=== PATIENT | female | born 1970 | race Caucasian/White ===

== ENCOUNTER 2018-04-08 05:28 | Day surgery (SDC) | payer BC, SELFPAY ==
--- NOTE | 2018-03-16 12:45 | EKG12_ITS ---
Test Reason : PRE OP Blood Pressure : / mmHG Vent. Rate : 077 BPM Atrial Rate : 077 BPM P-R Int : 146 ms QRS Dur : 072 ms QT Int : 356 ms P-R-T Axes : 064 021 051 degrees QTc Int : 402 ms Normal sinus rhythm Normal ECG Confirmed by PUNEET MATTA, HERMANN ([id number]), avid editor JAZMIN ESTEVES ([id number]) on 03/18/2018 12:56:44 PM Referred By: Aditi Ocampo Confirmed By:HERMANN TEIXEIRA MD
[2018-03-16 13:22] LABS: Hematocrit 41.8 % (37-47); Hemoglobin 13.4 g/dl (12.0-15.0); Mean Corp Hgb Conc 32.1 g/gl (32-36); Mean Corpuscular Hgb 28.8 pg (27.0-32.0); Mean Corpuscular Volume 89.9 fL (81-99); Mean Platelet Vol. 9.8 fl (6.2-12.0); Platelet Count 385 K/mm3 (150-450); RBC Distribution Width CV 12.9 % (11.6-14.6); RBC Distribution Width SD 42.2 fl (35.1-43.9); Red Blood Count 4.65 M/mm3 (4.2-5.4); Scan Indicated on CBC? Y/N NO; White Blood Count 6.3 K/mm3 (4.4-11.0)
[2018-03-16 13:28] LABS: International Normalized Ratio 0.9; Prothrombin Time (Protime)PT. 12.1 SECONDS (11.7-14.9)
[2018-03-16 13:29] LABS: Partial Thromboplast Time 25.6 Seconds (24.1-36.2)
[2018-03-16 13:49] LABS: AST(SGOT) 20 U/L (15-37); Alanine Aminotransfer ALT/SGPT 31 U/L (13-56); Albumin, Serum 3.2 g/dL (3.2-5.0); Alkaline Phosphatase 46 U/L (45-117); Globulin 4.2 g/dL (2.2-4.2); Protein, Total 7.4 g/dL (6.4-8.2)
--- NOTE | 2018-04-08 | HYST_PTH ---
PATIENT: EMERALD BLACKWELL LOC: [facility] [place] U[place][id number] AGE/SX: 48/F ROOM: RE04/08/[address]: Dr. Aditi Ocampo MD : [id number] BED: DIS: 04/09/2018 SPEC #: [id number] RECD: 04/08/18 11:04 STATUS: CYNTHIA LEEANNE #: [id number] MICHELLE: 04/08/18 00:[address]: Aditi Ocampo DEPT: SURGICAL PATHOLOGY RECD BY: Jax Al ENTERED: 04/09/18 08:51 SP TYPE: HYSTERECT OTHR DR: Dr. Melani Ennis MD Tissues: Uterus, NOS Procedures: Surgery Specimen Level V HEADER OPERATION: Total vaginal hysterectomy, bilateral salpingectomy PRE-OP DIAGNOSIS: Abnormal uterine bleeding TISSUE SUBMITTED: Uterus, cervix, bilateral fallopian tubes MICROSCOPIC DIAGNOSIS Uterus, cervix and bilateral fallopian tubes: Cervix ? chronic cystic cervicitis. Endometrium ? consistent with exogenous hormone effects. Myometrium ? leiomyomas (largest measuring 5 cm in diameter). One fallopian tube (block 9) - no pathologic diagnosis. Second fallopian tube (block 10) ? mucosal and subserosal surface changes consistent with exogenous hormone effects. SJ:adela 04/09/18 MICROSCOPIC DESCRIPTION Slides are reviewed. GROSS DESCRIPTION Received in fixative is one container labeled with the patient's name and designated uterus, cervix, bilateral fallopian tubes. The specimen consists of a hysterectomy specimen consisting of uterus with cervix and detached bilateral fallopian tubes. The uterus with cervix weighs 279 gm and measures 11 x 9 x 7 cm. The serosal surface is ji, glistening. The ectocervical mucosa is congested and eroded. The external os is oval in contour. The endocervical canal measures 4 cm in length and the endocervical mucosa is unremarkable. The endometrial cavity is compressed on one side and measures 5 cm in length and 4 cm in width. The endometrium is ji, glistening and measures up to 0.1 cm in thickness. Sections of myometrial wall reveal multiple masses. The largest mass is intramural to submucosal in location in the posterior uterine wall and measures 5 cm in diameter. Sections of these masses reveal ji whorled cut surfaces without areas of hemorrhage, necrosis or cystic degeneration. The uninvolved uterine wall measures 3 cm in thickness. The fallopian tubes are not identified as right or left. Fimbrial ends are noted on both fallopian tubes. One fallopian tube measures 3.5 cm in length and 0.5 cm in diameter. The second fallopian tube measures 2.5 cm in length and 0.6 cm in diameter. Leaf Sorter sections are submitted in ten cassettes as follows: 1 - anterior cervix, 2 - posterior cervix, 3 & 4 - anterior uterine wall, 5 & 6 - posterior uterine wall (6 also contains section of largest nodular mass), 7 ? small nodular masses, 8 ? largest nodular mass, 9 & 10 ? each containing one fallopian tube. / SJ:adela 04/08/18 TC:1 CPT: 76821
--- NOTE | 2018-04-08 05:28 | DT_ITS ---
This patient was seen during an EMR downtime April 05, 2018 - April 12, 2018. This patient may have a combination of paper and electronic documentation or all paper documentation. All documentation is viewable within the e-chart portion of [employer] for each patient visit.
[2018-04-12 11:37] LABS: Hemoglobin 10.7 g/dl (12.0-15.0); Red Blood Count 3.71 M/mm3 (4.2-5.4); White Blood Count 12.7 K/mm3 (4.4-11.0)
[2018-04-12 11:38] LABS: Hematocrit 32.9 % (37-47); Mean Corp Hgb Conc 32.5 g/gl (32-36); Mean Corpuscular Hgb 28.8 pg (27.0-32.0); Mean Corpuscular Volume 88.7 fL (81-99); Mean Platelet Vol. 9.9 fl (6.2-12.0); Platelet Count 339 K/mm3 (150-450); RBC Distribution Width CV 13.2 % (11.6-14.6); RBC Distribution Width SD 42.8 fl (35.1-43.9); Scan Indicated on CBC? Y/N NO
[2018-04-13 04:00] LABS: Hematocrit 36.2 % (37-47); Hemoglobin 11.9 g/dl (12.0-15.0); Mean Corp Hgb Conc 32.9 g/gl (32-36); Mean Corpuscular Hgb 29.1 pg (27.0-32.0); Mean Corpuscular Volume 88.5 fL (81-99); Mean Platelet Vol. 9.6 fl (6.2-12.0); Platelet Count 334 K/mm3 (150-450); RBC Distribution Width CV 13.2 % (11.6-14.6); RBC Distribution Width SD 42.5 fl (35.1-43.9); Red Blood Count 4.09 M/mm3 (4.2-5.4); Scan Indicated on CBC? Y/N NO; White Blood Count 12.4 K/mm3 (4.4-11.0)
[2018-04-13 10:51] LABS: Internal QC Validated? YES +Cl - CLEAR BKGD; Pregnancy, Urine Negative Negative
== END 2018-04-09 08:57 | disposition home or self-care (01) ==
LOC: SDC 05:28 → AC 05:30 → MS3 04-09 08:31
PROVIDERS: Family Provider Internal Medicine; PCP Internal Medicine; Visit Provider Obstetrics & Gynecology
PROC: 0UT9FZZ Resection of Uterus, Via Natural or Artificial Opening With Percutaneous Endoscopic Assistance (ICD-10-PCS; CPT 52000; principal; 2018-04-08 07:05)
DX: N72 Inflammatory disease of cervix uteri (principal); D26.1 Other benign neoplasm of corpus uteri; N93.9 Abnormal uterine and vaginal bleeding, unspecified; D25.1 Intramural leiomyoma of uterus; E06.9 Thyroiditis, unspecified; D64.9 Anemia, unspecified; G43.909 Migraine, unspecified, not intractable, without status migrainosus
CPT/HCPCS: 00910; 52000; 58291; 36415; 80076; 81025; 84443; 85027; 85610; 85730; 86850; 86900; 88307; 93005; J7120; J2405

== ENCOUNTER → 2019-02-01 12:43 | Outpatient (CLI) | payer OTHER, SELFPAY ==
--- NOTE | 2019-02-01 12:49 | BI_ITS ---
MAMMOGRAPHY - BILATERAL SCREENING REASON FOR EXAM: Female, 49 years old. Routine annual screening examination. PERTINENT HISTORY: Father with breast cancer. Sister with breast cancer. TECHNIQUE: Digital bilateral breast paula (3D mammographic acquisition) in the CC and MLO projections. 2-D mediolateral oblique (MLO) and craniocaudad (CC) views of both breasts were obtained. CAD: Full Field Digital Mammography with Computer Added Detection was performed. COMPARISON: Comparison is made with prior examination dated July 21, 2009. FINDINGS: Breast Composition: There are scattered areas of fibroglandular density. There are no dominant masses or suspicious calcifications. Stable asymmetric breast tissue with more breast tissue is seen in the upper outer quadrant of the left breast as compared to the right side. No other significant abnormalities are identified. There has been no significant change since the prior study. BI/SCREENING MAMM (CAD), BILAT IMPRESSION: Stable bilateral screening mammogram. Yearly follow-up mammogram recommended. (A) ASSESSMENT CATEGORY: BIRADS Category 2: Benign. A letter regarding these results will be sent to the patient by the facility within 30 days. Approximately 10% of breast cancers are not detected by mammography. A normal mammogram should not delay biopsy of a clinically suspicious abnormality. [id number] Electronically Signed: Chuck Bergman, at 14:35 EDT , Service support ,
--- NOTE | 2019-02-01 13:39 | CT_ITS ---
STUDY: CT CHEST WITHOUT CONTRAST REASON FOR EXAM: Female, 49 years old. Calcium scoring examination. RADIATION DOSAGE (If Supplied By Facility): CTDIvol = ( 12.19 ) mGy, DLP = ( 195.04 ) mGycm TECHNIQUE: Transaxial imaging was performed without the administration of intravenous contrast material. Individualized dose optimization techniques were used for this CT. COMPARISON: None. FINDINGS: Small bilateral axillary lymph nodes. The largest lymph node in the left axillary region measures 1.5 cm. The lungs are normal. There is no demonstrated pleural abnormality. Normal heart and pericardium. There are multiple small lymph nodes within the mediastinum, which are normal in size and morphology most compatible with reactive lymph hyperplasia. Normal hilar regions. Normal unenhanced pulmonary arteries. Normal aorta arch and descending thoracic aorta. There are degenerative changes of the thoracic spine. There is no demonstrated abnormality of the visualized upper abdomen. CT/Limited Chest CT w/CCTA IMPRESSION: Normal unenhanced CT Chest examination. Electronically Signed: Chuck Bergman, at 11:09 EDT , Service support ,
[2019-02-01 13:42] VITALS: BP 104/59; PULSE 62; RESP 16; O2SAT 99; BMI 32.8
--- NOTE | 2019-02-01 16:09 | CA.SCORE ---
Calcium Scoring Date of Study:: 02/01/19 Coronary Calcium Scoring: High-resolution Computed Tomographic imaging of the chest was performed on [02/01/2019 ], with particular attention paid to the coronary arteries. Images from the examination were analyzed for the presence and extent of coronary artery calcification , using coronary calcium quantification software. The patient tolerated the procedure well and there were no complications. The results of the coronary calcification analysis are provided below. - Findings Left Main (LM): 0 Left Anterior Descending (LAD): 0 Left Circumflex (LCX): 0 Right Coronary Artery (RCA): 0 Total Agatston Score: 0 Percentile Rankin - Conclusion Calcium Scoring Interpretation: Calcium Score Interpretation 0 No identifiable atherosclerotic plaque. Very low cardiovascular disease risk. <5% chance of presence coronary artery disease A Negative Examination 1-10 Minimal Plaque burden. Significant coronary artery disease very unlikely. 11-100 Mild plaque burden. Likely mild or minimal coronary atherosclerosis. 101-400 Moderate plaque burden Moderate non-obstructive coronary artery disease highly likely. Over 400 Extensive plaque burden. High likelihood of at least one significant coronary stenosis (>50% diameter) Calcium Score: 1 -10 Significant coronary artery disease very unlikely - A full cardiac risk evaluation should include assessment of all conventional risk factors.
== END ==
PROVIDERS: Family Provider Internal Medicine; PCP Internal Medicine; Referring Provider Internal Medicine; Visit Provider Internal Medicine
DX: Z12.31 Encounter for screening mammogram for malignant neoplasm of breast (principal); Z04.89 Encounter for examination and observation for other specified reasons
CPT/HCPCS: 75571; 76380; 77063; 77067

== ENCOUNTER → 2019-03-10 12:43 | Outpatient (CLI) | payer OTHER, SELFPAY ==
[2019-02-01 13:42] VITALS: BMI 32.8
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
== END ==
PROVIDERS: Family Provider Internal Medicine; PCP Internal Medicine; Referring Provider Internal Medicine; Visit Provider Internal Medicine
DX: S09.90XA Unspecified injury of head, initial encounter (principal)
CPT/HCPCS: 70450

== ENCOUNTER → 2019-03-22 09:12 | Outpatient (CLI) | payer OTHER, SELFPAY ==
[2019-02-01 13:42] VITALS: BMI 32.8
--- NOTE | 2019-03-22 09:41 | RAD_ITS ---
STUDY: X-RAY - LEFT HAND REASON FOR EXAM: Female, 49 years old. Pain TECHNIQUE: 3 view(s) of the hand. COMPARISON: None. FINDINGS: Normal radiocarpal articulation. Normal distal radioulnar joint. Normal visualized carpal bones. Normal carpal articulations Normal carpometacarpal articulation of the thumb. Normal second through fifth carpometacarpal joints. Normal metacarpi. Normal metacarpophalangeal joint of the thumb. Normal interphalangeal joint of the thumb. Normal proximal and distal phalanges of the thumb. Normal metacarpophalangeal joints of the second through fifth fingers. There is mild diffuse articular joint space narrowing of the proximal and distal interphalangeal joints of the second through fifth fingers, but without erosive changes or periarticular soft tissue swelling. Normal phalanges of the second through fifth fingers. The soft tissue structures are unremarkable. RAD/Hand Min 3 Views IMPRESSION: All distal interphalangeal joint degenerative change. No visualized acute fracture. Electronically Signed: Sherlyn Sierra MD at 23:24 EDT Tel , Service support ,
--- NOTE | 2019-03-22 09:41 | RAD_ITS ---
STUDY: X-RAY - RIGHT HAND REASON FOR EXAM: Female, 49 years old. Pain TECHNIQUE: 3 view(s) of the hand. COMPARISON: None. FINDINGS: Normal radiocarpal articulation. Normal distal radioulnar joint. Normal visualized carpal bones. Normal carpal articulations Normal carpometacarpal articulation of the thumb. Normal second through fifth carpometacarpal joints. Normal metacarpi. Normal metacarpophalangeal joint of the thumb. Normal interphalangeal joint of the thumb. Normal proximal and distal phalanges of the thumb. Normal metacarpophalangeal joints of the second through fifth fingers. There is mild diffuse articular joint space narrowing of the proximal and distal interphalangeal joints of the second through fifth fingers, but without erosive changes or periarticular soft tissue swelling. Normal phalanges of the second through fifth fingers. The soft tissue structures are unremarkable. RAD/Hand Min 3 Views IMPRESSION: Degenerative change of the distal interphalangeal joints is most consistent with mild osteoarthritis. Electronically Signed: Sherlyn Sierra MD at 23:13 EDT Tel , Service support ,
== END ==
PROVIDERS: Family Provider Internal Medicine; PCP Internal Medicine; Referring Provider Internal Medicine; Visit Provider Internal Medicine
DX: M25.50 Pain in unspecified joint (principal)
CPT/HCPCS: 73130

== ENCOUNTER → 2021-07-16 | Outpatient (CLI) | payer OTHER, SELFPAY ==
[2021-07-16 17:20] LABS: Color, Urine Yellow (Yellow); Glucose, Dipstick Normal (Normal); Ketone-Dipstick Negative (Negative); Leukocyte Esterase-Dipstick 25 /ul (Negative); Nitrite-Dipstick Negative (Negative); Occult Blood-Urine Negative /ul (Negative); Protein-Dipstick Negative (Negative); Urine Bilirubin Dipstick Negative (Negative); Urine Clarity Clear (Clear); Urine Urobilinogen Normal (Normal)
== END | disposition home or self-care (01) ==
LOC: LABSPEC 16:11
PROVIDERS: PCP Internal Medicine; Visit Provider Internal Medicine
DX: F90.0 Attention-deficit hyperactivity disorder, predominantly inattentive type (principal); Z01.84 Encounter for antibody response examination
CPT/HCPCS: 81002; 86769

== ENCOUNTER → 2021-08-26 16:12 | Outpatient (CLI) | payer OTHER, SELFPAY | PROVIDERS: PCP Internal Medicine; Visit Provider Internal Medicine | DX: M79.645 Pain in left finger(s) (principal) ==

== ENCOUNTER → 2021-10-14 16:12 | Outpatient (CLI) | payer OTHER, SELFPAY ==
--- NOTE | 2021-10-14 16:15 | BI_ITS ---
MAMMOGRAPHY - BILATERAL SCREENING REASON FOR EXAM: Female, 51 years old. Routine annual screening examination. PERTINENT HISTORY: Sister with breast cancer. Father with breast cancer. Aunt with breast cancer. TECHNIQUE: Digital bilateral breast siddharth (3D mammographic acquisition) in the CC and MLO projections. 2-D mediolateral oblique (MLO) and craniocaudad (CC) views of both breasts were obtained. CAD: Full Field Digital Mammography with Computer Added Detection was performed. COMPARISON: Comparison is made with prior study dated 02/01/2019. FINDINGS: Breast Composition: There are scattered areas of fibroglandular density. There are no dominant masses or suspicious calcifications. Stable asymmetry of breast tissue were more breast tissue is seen in the upper-outer quadrant of the left breast as compared to the right side. No other significant abnormalities are identified. There has been no significant change since the prior study. BI/SCRN MAMM (CAD)W/SIDDHARTH BILAT IMPRESSION: Stable bilateral screening mammogram. Yearly follow-up mammogram recommended. (A) ASSESSMENT CATEGORY: BIRADS Category 2: Benign. A letter regarding these results will be sent to the patient by the facility within 30 days. Approximately 10% of breast cancers are not detected by mammography. A normal mammogram should not delay biopsy of a clinically suspicious abnormality. [id number] Electronically Signed: Chuck Bergman MD at 8:35 EST , Service support ,
--- NOTE | 2021-10-14 16:43 | RAD_ITS ---
EXAM: XR LEFT FINGERS, 2 OR MORE VIEWS CLINICAL INDICATION: LFT FINGER PAIN TECHNIQUE: Frontal, lateral and oblique views of the fingers of the left hand. This report was created using [employer] report generation technology. COMPARISON: None. FINDINGS: BONES/JOINTS: Unremarkable. No acute fracture. No subluxation. Normal alignment. Preservation of the joint space. No sclerotic or destructive changes observed. SOFT TISSUES: Unremarkable. No soft tissue swelling or gas. No radiopaque foreign body. RAD/Finger(s) Min 2 Views IMPRESSION: Negative x-rays of the visualized left fingers. Electronically Signed: Wilberto Kirkland MD at 1:39 EST Tel , Service support ,
== END ==
LOC: OPBI 16:13 → RAD 16:32
PROVIDERS: PCP Internal Medicine; Visit Provider Internal Medicine
DX: Z12.31 Encounter for screening mammogram for malignant neoplasm of breast (principal); M79.645 Pain in left finger(s); Z80.3 Family history of malignant neoplasm of breast
CPT/HCPCS: 73140; 77063; 77067

== ENCOUNTER 2021-11-08 15:55 | Outpatient (CLI) | payer OTHER, SELFPAY ==
[2021-11-08 16:58] LABS: Absolute Lymphocyte Count 2.03 X10^3/uL (0.83-4.51); Absolute Neutrophil Count 5.5 X10^3/uL (2.0-7.7); Basophil# 0.06 X10^3/uL; Basophil% 0.7 % (0-1); Eosinophil# 0.18 X10^3/uL; Eosinophils% 2.2 % (0-5); Hematocrit 42.8 % (37-47); Hemoglobin 13.8 g/dL (12.0-15.0); Lymphocyte # 2.03 X10^3/ul (0.83-4.51); Lymphocyte % 24.5 % (19-41); Mean Corp Hgb Conc 32.2 g/dL (32-36); Mean Corpuscular Hgb 29.6 pg (27.0-32.0); Mean Corpuscular Volume 91.8 fL (81-99); Mean Platelet Vol. 10.6 fl (6.2-12.0); Monocyte# 0.46 X10^3/uL; Monocyte% 5.6 % (0-10); NRBC Flagged by Analyzer 0 % (0-5); Neutrophil # 5.53 X10^3/uL (2.7-7.7); Neutrophil % 66.8 % (47-70); Platelet Count 309 K/mm3 (150-450); RBC Distribution Width CV 12.6 % (11.6-14.6); RBC Distribution Width SD 41.3 fl (35.1-43.9); Red Blood Count 4.66 M/mm3 (4.2-5.4); White Blood Count 8.3 K/mm3 (4.4-11.0)
[2021-11-08 17:49] LABS: ALB/GLOB Ratio 0.9 RATIO (0.9-2.4); AST(SGOT) 30 U/L (15-37); Alanine Aminotransfer ALT/SGPT 104 U/L (13-56); Albumin, Serum 3.3 g/dL (3.2-5.0); Alkaline Phosphatase 145 U/L (45-117); Anion Gap 8 (5-15); BUN 17 mg/dL (7-18); Calcium,Total 10.1 mg/dL (8.5-10.1); Chloride 105 mmol/L (98-107); Creatinine, Serum 1.06 mg/dL (0.55-1.02); EST Glomerular Filtration Rate 58 mL/min (>60); Est Glom Filt Rate - Afr Amer 70 mL/min (>60); Globulin 3.7 g/dL (2.2-4.2); Glucose 128 mg/dL (74-106); Sodium Level 140 mmol/L (136-145)
== END 2021-11-08 23:59 | disposition short-term general hospital (02) ==
LOC: LABSPEC 15:56
PROVIDERS: PCP Internal Medicine; Visit Provider Internal Medicine
DX: R06.09 Other forms of dyspnea (principal)
CPT/HCPCS: 80053; 85025

== ENCOUNTER → 2024-01-01 | Outpatient (CLI) | payer OTHER, SELFPAY ==
--- NOTE | 2023-12-31 16:52 | BI_ITS ---
MAMMOGRAPHY - BILATERAL SCREENING REASON FOR EXAM: Female, 53 years old. Routine annual screening examination. PERTINENT HISTORY: Sister with breast cancer. Aunt with breast cancer. Father with breast cancer. TECHNIQUE: Digital bilateral breast siddharth (3D mammographic acquisition) in the CC and MLO projections. 2-D mediolateral oblique (MLO) and craniocaudad (CC) views of both breasts were obtained. CAD: Full Field Digital Mammography with Computer Added Detection was performed. COMPARISON: Comparison is made with prior study dated October 14, 2021 and February 01, 2019. FINDINGS: Breast Composition: There are scattered areas of fibroglandular density. There are no dominant masses or suspicious calcifications. Once again, there is stable asymmetry of breast tissue normal breast tissue seen in the upper quadrant of the breast as compared to the right side. No other significant abnormalities are identified. There has been no significant change since the prior study. BI/SCRN MAMM (CAD)W/SIDDHARTH BILAT IMPRESSION: Stable bilateral screening mammogram. Yearly follow-up mammogram recommended. (A) ASSESSMENT CATEGORY: BIRADS Category 2: Benign. A letter regarding these results will be sent to the patient by the facility within 30 days. Approximately 10% of breast cancers are not detected by mammography. A normal mammogram should not delay biopsy of a clinically suspicious abnormality. [id number] Electronically Signed: Chuck Bergman MD at 8:17 EST ,
== END | disposition home or self-care (01) ==
LOC: OPBI 07:10
PROVIDERS: PCP Internal Medicine; Referring Provider Internal Medicine; Visit Provider Internal Medicine
DX: Z12.31 Encounter for screening mammogram for malignant neoplasm of breast (principal); Z80.3 Family history of malignant neoplasm of breast
CPT/HCPCS: 77063; 77067

== ENCOUNTER → 2024-04-12 | Outpatient (CLI) | payer OTHER, SELFPAY ==
--- NOTE | 2024-04-12 14:07 | ART_ITS ---
Reason For Study: atheroembolism of bilat LE Procedure A bilateral lower extremity continuous wave Doppler with analog waveform analysis,segmental pressures,and ankle brachial indexes without exercise. Left Segmental Pressures Left brachial= 103mmHg. Left posterior tibial artery = 144mmHg. Left dorsalis pedis artery = 119mmHg. Left digit = 115 mmHg. The left dorsalis pedis waveforms are triphasic. The left posterior tibial artery waveforms are triphasic. Right Segmental Pressures Right brachial= 104mmHg. Right posterior tibial artery = 145mmHg. Right dorsalis pedis artery = 122mmHg. Right digit = 89 mmHg. The right dorsalis pedis waveforms are triphasic. The right posterior tibial artery waveforms are triphasic. Indices The right ankle brachial index by the posterior tibial artery is 1.39. The right ankle brachial index by the dorsalis pedis is 1.17. The right digital-brachial index is .89. The left ankle brachial index by the posterior tibial artery is 1.38. The left ankle brachial index by the dorsalis pedis is 1.14. The left digital-brachial index is 1.11. VL/Lower Ext Art Exam w/o Exercis Interpretation Summary Right IDA 1.39, normal. TBI and Doppler/PVR waveforms of the right leg normal a t rest. Left IDA 1.38, normal.TBI and Doppler/PVR waveforms of the left leg normal at r est. Ordering Physician: Melani Ennis Referring Physician: MELANI ENNIS MD Performed By: Devendra Acuña, RVT
== END | disposition home or self-care (01) ==
LOC: CVS 14:04
PROVIDERS: PCP Internal Medicine; Referring Provider Internal Medicine; Visit Provider Internal Medicine
DX: I75.023 Atheroembolism of bilateral lower extremities (principal)
CPT/HCPCS: 93923